=== PATIENT | female | born 1980 | race Caucasian/White ===

== ENCOUNTER 2025-01-13 11:15 | Emergency (ER) | payer BC ==
[~2025-01-13] VITALS: Ht 170.2 cm; Wt 93.0 kg
[2025-01-13 11:34] VITALS: TEMP 98.3
[2025-01-13] MEDS ORDERED: ALBU18HF2 INH (13:41)
[2025-01-13] MEDS ORDERED: AZIT250T13 PO (13:41)
[2025-01-13 13:48] VITALS: BP 125/80; O2SAT 96
== END 2025-01-13 13:47 | disposition home or self-care (01) ==
LOC: ER 11:15
DX: J40 Bronchitis, not specified as acute or chronic (principal); B97.89 Other viral agents as the cause of diseases classified elsewhere; I10 Essential (primary) hypertension; F17.200 Nicotine dependence, unspecified, uncomplicated
CPT/HCPCS: 71045-TC